=== PATIENT | male | born 1955 | race Two or more races ===

== ENCOUNTER 2018-06-19 15:30 | Emergency (ER) | payer SELFPAY, OTHER ==
[2018-06-19] MEDS: HYDROCODONE/APAP (5/325) TAB PO (17:10)
[2018-06-19] MEDS: DIPHTH/TET/ACEL PERTUSS (ADULT) 0.5 ML VIAL IM* (18:25)
== END 2018-06-19 18:45 | disposition home or self-care (01) ==
LOC: FTE 15:30
DX: S61.217A Laceration without foreign body of left little finger without damage to nail, initial encounter (principal); I10 Essential (primary) hypertension; F17.210 Nicotine dependence, cigarettes, uncomplicated; W26.8XXA Contact with other sharp object(s), not elsewhere classified, initial encounter; Y92.89 Other specified places as the place of occurrence of the external cause; Z23 Encounter for immunization; Z79.82 Long term (current) use of aspirin
CPT/HCPCS: 12002; 90471; 90715; 99283-25